=== PATIENT | male | born 1955 | race Two or more races ===

== ENCOUNTER 2018-06-17 15:03 | Inpatient (IN) | payer SELFPAY ==
[~2018-06-17] VITALS: Ht 160 cm; Wt 113.6 kg
[2018-06-17] MEDS ORDERED: SODIUM CHLORIDE FLUSH 10ML SYR IVF ONE (15:30)
[2018-06-17 15:34] LABS: BASOPHILS # (AUTO) 0.02 x10^3/uL (0-0.1); BASOPHILS % (AUTO) 0 % (0-1); EOSINOPHILS # (AUTO) 0.15 x10^3/uL (0-0.4); EOSINOPHILS % (AUTO) 2 % (1-7); LYMPHOCYTES # (AUTO) 1.85 x10^3/uL (1-3.4); LYMPHOCYTES % (AUTO) 19 % (22-44); MD NO; MEAN CORPUSCULAR HEMOGLOBIN 27.5 pg (27.5-34.5); MEAN CORPUSCULAR HGB CONC 33.4 g/dL (33.2-36.2); MEAN CORPUSCULAR VOLUME 82.2 fL (81-97); MEAN PLATELET VOLUME 9.4 fL (7.4-10.4); MONOCYTES # (AUTO) 0.79 x10^3/uL (0.2-0.8); MONOCYTES % (AUTO) 8 % (2-9); NEUTROPHILS # (AUTO) 7.16 x10^3/uL (1.8-6.8); NEUTROPHILS % (AUTO) 72 % (42-75); PLATELET COUNT 260 x10^3/uL (130-400); RED BLOOD COUNT 4.71 x10^6/uL (4.38-5.82); RED CELL DISTRIBUTION WIDTH 16.4 % (9.4-14.8)
[2018-06-17 15:46] LABS: ALANINE AMINOTRANSFERASE 17 U/L (12-78); ALBUMIN 3.2 g/dL (3.4-5.0); ANION GAP 11 mmol/L (5-15); CALCIUM 8.1 mg/dL (8.5-10.1); CHLORIDE 104 mmol/L (98-107); CREATININE 0.62 mg/dL (0.7-1.3)
[2018-06-17 15:48] LABS: ALKALINE PHOSPHATASE 186 U/L (45-117); BILIRUBIN,TOTAL 1.1 mg/dL (0.2-1.0); TOTAL PROTEIN 7.6 g/dL (6.4-8.2)
[2018-06-17] MEDS ORDERED: VANCOMYCIN PER PHARMACY MC PRN ×2 (18:00→19:30)
[2018-06-17] MEDS ORDERED: VANCOMYCIN 1,600 MG in SODIUM CHLORIDE 0.9% 250 ML IV ONE (18:30)
[2018-06-17] MEDS ORDERED: DIPHENHYDRAMINE 25 MG CAPSULE PO PRN (19:30)
[2018-06-17] MEDS ORDERED: ONDANSETRON ODT 4 MG PO PRN (19:30)
[2018-06-17] MEDS ORDERED: hydrALAzine 20 MG/ML, 1ML IVPush PRN (19:30)
[2018-06-17] MEDS ORDERED: KETOROLAC 30 MG/1 ML IV PRN (19:30)
[2018-06-17] MEDS ORDERED: ACETAMINOPHEN 325 MG TABLET PO PRN (19:30)
[2018-06-17 19:53] LABS: HEMOGLOBIN A1C 9.4 % (4.2-6.3)
[2018-06-17] MEDS ORDERED: PHARMACOKINETIC CONSULTATION MC ONE (21:00)
[2018-06-17] MEDS ORDERED: PHARMACOKINETIC MONITORING MC PRN (21:00)
[2018-06-17] MEDS: INSULIN LISPRO 100 UNITS/ML, PEN SQ-INSULIN SCH (21:48)
[2018-06-17] MEDS: POLYETHYLENE GLYCOL 17 GM PACKET PO SCH (22:04)
[2018-06-17] MEDS: ENOXAPARIN 40 MG/0.4 ML SQ SCH (22:04)
[2018-06-17 22:08] VITALS: BP 131/69
[2018-06-18 01:02] VITALS: BP 119/62
[2018-06-18] MEDS: INSULIN LISPRO 100 UNITS/ML, PEN SQ-INSULIN SCH ×4 (07:00→22:19)
[2018-06-18 07:55] VITALS: BP 107/51
[2018-06-18] MEDS: POLYETHYLENE GLYCOL 17 GM PACKET PO SCH (09:17)
[2018-06-18 12:25] VITALS: BP 110/55
[2018-06-18] MEDS: CEFTAROLINE 600 MG in SODIUM CHLORIDE 0.9% 100 ML IV SCH (12:55)
[2018-06-18] MEDS ORDERED: VANCOMYCIN 2,000 MG in SODIUM CHLORIDE 0.9% 500 ML IV SCH (14:00)
[2018-06-18] MEDS ORDERED: VANCOMYCIN 1,700 MG in SODIUM CHLORIDE 0.9% 250 ML IV SCH (18:30)
[2018-06-18 19:10] VITALS: BP 132/62
[2018-06-18] MEDS: ENOXAPARIN 40 MG/0.4 ML SQ SCH (22:19)
[2018-06-19] MEDS: CEFTAROLINE 600 MG in SODIUM CHLORIDE 0.9% 100 ML IV SCH ×2 (01:16→13:25)
[2018-06-19 01:38] VITALS: BP 114/65
[2018-06-19 05:46] LABS: CREATININE 0.63 mg/dL (0.7-1.3)
[2018-06-19] MEDS: INSULIN LISPRO 100 UNITS/ML, PEN SQ-INSULIN SCH ×5 (07:00→21:20)
[2018-06-19 07:30] VITALS: BP 123/73
[2018-06-19] MEDS: POLYETHYLENE GLYCOL 17 GM PACKET PO SCH (08:44)
[2018-06-19 15:04] VITALS: BP 111/66
[2018-06-19] MEDS: metFORMIN 500 MG TABLET PO SCH (17:17)
[2018-06-19 19:54] VITALS: BP 126/74
[2018-06-19 20:15] LABS: CLOSTRIDIUM DIFFICILE ANTIGEN NEGATIVE; CLOSTRIDIUM DIFFICILE TOXIN NEGATIVE (Negative)
[2018-06-19] MEDS: ENOXAPARIN 40 MG/0.4 ML SQ SCH (21:21)
[2018-06-20] MEDS: CEFTAROLINE 600 MG in SODIUM CHLORIDE 0.9% 100 ML IV SCH (01:24)
[2018-06-20 01:50] VITALS: BP 114/69
[2018-06-20] MEDS: INSULIN LISPRO 100 UNITS/ML, PEN SQ-INSULIN SCH ×2 (07:00→11:35)
[2018-06-20 08:00] VITALS: BP 122/72
[2018-06-20] MEDS: POLYETHYLENE GLYCOL 17 GM PACKET PO SCH (08:04)
[2018-06-20] MEDS: metFORMIN 500 MG TABLET PO SCH (08:54)
[2018-06-20] MEDS ORDERED: AMOX1TAB12 PO (12:05)
[2018-06-20] MEDS ORDERED: METF500T PO (12:05)
[2018-06-20] MEDS ORDERED: GLIP5TAB10 PO (12:05)
[2018-06-20] MEDS ORDERED: ACID1TAB7 PO (12:05)
[2018-06-20 14:31] VITALS: BP 127/74
[2018-06-20] MEDS ORDERED: LACTOBACILLUS CHEW TABLET PO SCH (16:00)
[2018-06-20] MEDS ORDERED: AMOXICILLIN/CLAV 875-125MG TABLET PO SCH (21:00)
== END 2018-06-20 16:16 | disposition home or self-care (01) | DRG 638 ==
LOC: ED 17:09 → EDIP 18:10 → 3NE 20:19
PROVIDERS: ADMIT Internal Medicine; ATTEND Internal Medicine
DX: E11.620 Type 2 diabetes mellitus with diabetic dermatitis (principal); L03.115 Cellulitis of right lower limb; E44.1 Mild protein-calorie malnutrition; Z68.41 Body mass index [BMI] 40.0-44.9, adult; L03.116 Cellulitis of left lower limb; D63.8 Anemia in other chronic diseases classified elsewhere; E11.65 Type 2 diabetes mellitus with hyperglycemia; E66.01 Morbid (severe) obesity due to excess calories; Z59.0 Homelessness; Z91.14 Patient's other noncompliance with medication regimen
CPT/HCPCS: 36415; 80053; 82565; 82962; 83036; 85025; 85651; 86140; 87324; 93970; 96365; G0378; J0712; J1650; J3370; J1815; J7050

== ENCOUNTER 2018-07-31 17:03 | Inpatient (IN) | payer SELFPAY ==
[~2018-07-31] VITALS: Ht 157.5 cm; Wt 109.1 kg
[~2018-07-31 17:03] MED LIST: ACID1TAB7 PO; AMOX1TAB12 PO; GLIP5TAB10 PO; METF500T PO
--- NOTE | 2018-07-31 17:27 | NUR ---
Pt to room with can vacuum tester.
--- NOTE | 2018-07-31 17:50 | NUR ---
lab at bedside.
--- NOTE | 2018-07-31 18:10 | NUR ---
Dr. Leon at bedside to evaluate pt.
--- NOTE | 2018-07-31 18:18 | NUR ---
PIV started, pt aware of plan to be admitted to the hospital.
[2018-07-31 18:20] LABS: BASOPHILS # (AUTO) 0.02 x10^3/uL (0-0.1); BASOPHILS % (AUTO) 0 % (0-1); EOSINOPHILS # (AUTO) 0.29 x10^3/uL (0-0.4); EOSINOPHILS % (AUTO) 4 % (1-7); LYMPHOCYTES # (AUTO) 1.59 x10^3/uL (1-3.4); LYMPHOCYTES % (AUTO) 22 % (22-44); MD NO; MEAN CORPUSCULAR HEMOGLOBIN 26.5 pg (27.5-34.5); MEAN CORPUSCULAR HGB CONC 33.3 g/dL (33.2-36.2); MEAN CORPUSCULAR VOLUME 79.7 fL (81-97); MEAN PLATELET VOLUME 9.2 fL (7.4-10.4); MONOCYTES # (AUTO) 0.76 x10^3/uL (0.2-0.8); MONOCYTES % (AUTO) 11 % (2-9); NEUTROPHILS # (AUTO) 4.45 x10^3/uL (1.8-6.8); NEUTROPHILS % (AUTO) 63 % (42-75); PLATELET COUNT 240 x10^3/uL (130-400); RED BLOOD COUNT 4.84 x10^6/uL (4.38-5.82); RED CELL DISTRIBUTION WIDTH 15.1 % (9.4-14.8)
[2018-07-31 18:25] LABS: ALANINE AMINOTRANSFERASE 25 U/L (12-78); ALBUMIN 2.9 g/dL (3.4-5.0); ANION GAP 7 mmol/L (5-15); CALCIUM 7.9 mg/dL (8.5-10.1); CHLORIDE 106 mmol/L (98-107); CREATININE 0.58 mg/dL (0.7-1.3)
[2018-07-31 18:27] LABS: ALKALINE PHOSPHATASE 174 U/L (45-117); BILIRUBIN,TOTAL 0.6 mg/dL (0.2-1.0); TOTAL PROTEIN 6.7 g/dL (6.4-8.2)
[2018-07-31] MEDS ORDERED: CEFAZOLIN PMX 1GM/50ML 50 ML IVPB ONE (18:30)
[2018-07-31] MEDS ORDERED: VANCOMYCIN PER PHARMACY IV ONE (18:30)
[2018-07-31] MEDS ORDERED: MORPHINE SULFATE 4 MG/ML, 1ML IV PRN (18:30)
[2018-07-31 18:58] LABS: TROPONIN I < 0.015 ng/mL (0.000-0.045)
[2018-07-31] MEDS ORDERED: SODIUM CHLORIDE FLUSH 10ML SYR IVF ONE (19:00)
[2018-07-31] MEDS ORDERED: PHARMACOKINETIC CONSULTATION MC ONE ×2 (19:00→23:00)
[2018-07-31] MEDS ORDERED: VANCOMYCIN 2,000 MG in SODIUM CHLORIDE 0.9% 500 ML IV ONE (19:00)
--- NOTE | 2018-07-31 19:06 | NUR ---
Report from Khloe SANCHEZ. microcomputer technician to bedside for EKG.
--- NOTE | 2018-07-31 19:25 | NUR ---
Requested ancef from pharmacy, not available in ED.
--- NOTE | 2018-07-31 19:46 | NUR ---
ABX infusing per orders, see emar. Pt resting comfortably in bed, states he does not need pain meds at this time but states he will notify this RN if pain worsens and he needs some. VSS. Pt awaiting room assignment. no distress noted, breathing E/U call light in reach.
--- NOTE | 2018-07-31 20:24 | NUR ---
Ancef complete. Vanco infusing per orders via pump, see emar. Pt resting, denies needs. no changes to pt or distress noted. VSS. will continue to monitor.
--- NOTE | 2018-07-31 21:11 | NUR ---
Pt continues to rest, abx infusing without difficulty. no acute distress noted. VSS. call light in reach.
--- NOTE | 2018-07-31 21:45 | NUR ---
Report to Geri SANCHEZ. Pt to shower via w/c and belongings to be double bagged.
--- NOTE | 2018-07-31 22:15 | NUR ---
Pt continues in shower with Tech assist.
--- NOTE | 2018-07-31 22:28 | NUR ---
PT IS BACK FROM SHOWER. HOSPITALIST AT BEDSIDE.
[2018-07-31] MEDS ORDERED: TEMAZEPAM 15 MG CAPSULE PO PRN (23:00)
[2018-07-31] MEDS ORDERED: DOCUSATE 100 MG CAPSULE PO PRN (23:00)
[2018-07-31] MEDS ORDERED: VANCOMYCIN PER PHARMACY MC PRN (23:00)
[2018-07-31] MEDS ORDERED: GLUCAGON 1 MG IM PRN (23:00)
[2018-07-31] MEDS ORDERED: morphine SULFATE 10 MG/ML, 1ML IVPush PRN (23:00)
[2018-07-31] MEDS ORDERED: PHARMACOKINETIC MONITORING MC PRN (23:00)
[2018-07-31] MEDS ORDERED: LABETALOL 5MG/ML, 20ML IVPush PRN (23:00)
[2018-07-31] MEDS ORDERED: DEXTROSE 4 GM TAB.CHEW PO PRN (23:00)
[2018-07-31] MEDS ORDERED: HYDROcodone/APAP 5/325 TABLET PO PRN (23:00)
[2018-07-31] MEDS ORDERED: DEXTROSE 50%, 50ML SYRINGE IVPush PRN (23:00)
[2018-07-31] MEDS ORDERED: PERMETHRIN CRM 5%, 60GM TP SCH (23:00)
[2018-07-31] MEDS ORDERED: ONDANSETRON 2MG/ML, 2ML IVPush PRN (23:00)
[2018-07-31] MEDS ORDERED: ONDANSETRON ODT 4 MG PO PRN (23:00)
[2018-07-31 23:16] LABS: HEMOGLOBIN A1C 9.9 % (4.2-6.3)
[2018-07-31] MEDS: ENOXAPARIN 40 MG/0.4 ML SQ SCH (23:45)
[2018-07-31] MEDS: VANCOMYCIN 2,100 MG in SODIUM CHLORIDE 0.9% 500 ML IV SCH (23:45)
[2018-08-01] MEDS: INSULIN LISPRO 100 UNITS/ML, PEN SQ-INSULIN SCH ×5 (00:28→21:21)
[2018-08-01 02:03] VITALS: BP 135/55
[2018-08-01 03:34] VITALS: BP 120/64
[2018-08-01] MEDS ORDERED: ACETAMINOPHEN 500 MG TABLET PO PRN (05:00)
[2018-08-01] MEDS: ASPIRIN 325 MG TABLET EC PO SCH (05:50)
[2018-08-01] MEDS ORDERED: CEFAZOLIN PMX 1GM/50ML 50 ML IV SCH (06:00)
[2018-08-01 07:57] VITALS: BP 137/73
[2018-08-01] MEDS: AMPICILLIN/SULBACTAM 3 GM in SODIUM CHLORIDE 0.9% 100 ML IV SCH ×3 (08:10→21:20)
[2018-08-01] MEDS: SODIUM CHLORIDE FLUSH 10ML SYR IVF SCH ×2 (08:10→21:22)
[2018-08-01] MEDS: NYSTATIN TOPICAL POWDER 15GM TP SCH ×2 (11:44→21:22)
[2018-08-01 13:44] VITALS: BP 104/62
[2018-08-01 19:45] VITALS: BP 116/61
[2018-08-01] MEDS: ENOXAPARIN 40 MG/0.4 ML SQ SCH (23:53)
[2018-08-01] MEDS: VANCOMYCIN 2,100 MG in SODIUM CHLORIDE 0.9% 500 ML IV SCH (23:53)
[2018-08-02 01:07] VITALS: BP 121/63
[2018-08-02] MEDS: AMPICILLIN/SULBACTAM 3 GM in SODIUM CHLORIDE 0.9% 100 ML IV SCH ×4 (03:02→20:59)
[2018-08-02] MEDS: ASPIRIN 325 MG TABLET EC PO SCH (05:24)
[2018-08-02] MEDS: INSULIN LISPRO 100 UNITS/ML, PEN SQ-INSULIN SCH ×4 (07:00→21:00)
[2018-08-02 07:40] VITALS: BP 133/71
[2018-08-02] MEDS: SODIUM CHLORIDE FLUSH 10ML SYR IVF SCH ×2 (09:00→21:00)
[2018-08-02] MEDS: NYSTATIN TOPICAL POWDER 15GM TP SCH ×2 (09:39→21:00)
[2018-08-02 14:40] VITALS: BP 126/70
[2018-08-02 18:47] VITALS: BP 125/69
[2018-08-02] MEDS: VANCOMYCIN 2,100 MG in SODIUM CHLORIDE 0.9% 500 ML IV SCH (23:58)
[2018-08-02] MEDS: ENOXAPARIN 40 MG/0.4 ML SQ SCH (23:58)
[2018-08-03 01:17] VITALS: BP 142/70
[2018-08-03] MEDS: AMPICILLIN/SULBACTAM 3 GM in SODIUM CHLORIDE 0.9% 100 ML IV SCH ×2 (03:00→09:43)
[2018-08-03] MEDS: ASPIRIN 325 MG TABLET EC PO SCH (05:46)
[2018-08-03 07:43] VITALS: BP 130/69
[2018-08-03] MEDS: INSULIN LISPRO 100 UNITS/ML, PEN SQ-INSULIN SCH ×4 (07:59→21:00)
[2018-08-03] MEDS: SODIUM CHLORIDE FLUSH 10ML SYR IVF SCH ×2 (09:43→21:00)
[2018-08-03] MEDS: NYSTATIN TOPICAL POWDER 15GM TP SCH ×2 (09:43→21:00)
[2018-08-03 15:19] VITALS: BP 129/70
[2018-08-03] MEDS ORDERED: INSULIN GLARGINE 100 UNITS/ML, PEN SQ-INSULIN SCH (21:00)
[2018-08-03] MEDS: AMOXICILLIN/CLAV 875-125MG TABLET PO SCH (21:00)
[2018-08-03] MEDS: ENOXAPARIN 30 MG/0.3 ML SQ SCH (21:30)
[2018-08-04] MEDS: ASPIRIN 325 MG TABLET EC PO SCH (05:25)
[2018-08-04] MEDS: INSULIN LISPRO 100 UNITS/ML, PEN SQ-INSULIN SCH (07:00)
[2018-08-04] MEDS ORDERED: METF500T PO (08:14)
[2018-08-04] MEDS ORDERED: AMOX1TAB12 PO (08:14)
[2018-08-04] MEDS: AMOXICILLIN/CLAV 875-125MG TABLET PO SCH (09:00)
[2018-08-04] MEDS: SODIUM CHLORIDE FLUSH 10ML SYR IVF SCH (09:00)
[2018-08-04] MEDS: NYSTATIN TOPICAL POWDER 15GM TP SCH (09:00)
[2018-08-04] MEDS: ENOXAPARIN 30 MG/0.3 ML SQ SCH (09:30)
== END 2018-08-04 13:20 | disposition home or self-care (01) | DRG 603 ==
LOC: ED 18:00 → EDIP 19:55 → 3NE 22:45
PROVIDERS: ADMIT Internal Medicine; ATTEND Internal Medicine
DX: L03.115 Cellulitis of right lower limb (principal); Z68.41 Body mass index [BMI] 40.0-44.9, adult; L03.116 Cellulitis of left lower limb; I87.2 Venous insufficiency (chronic) (peripheral); E66.01 Morbid (severe) obesity due to excess calories; L29.9 Pruritus, unspecified; B86 Scabies; E11.65 Type 2 diabetes mellitus with hyperglycemia; I50.810 Right heart failure, unspecified; Z91.14 Patient's other noncompliance with medication regimen; Z79.4 Long term (current) use of insulin; Z59.0 Homelessness; Z91.19 Patient's noncompliance with other medical treatment and regimen
CPT/HCPCS: 36415; 80053; 82962; 83036; 83605; 83880; 84484; 85025; 87040; 93005; 93922; 93970; 96365; 96375; G0378; J0295; J0690; J1650; J3370; J1815; J7040

== ENCOUNTER 2018-08-05 17:55 | Emergency (ER) | payer OTHER ==
[~2018-08-05] VITALS: Ht 157.5 cm; Wt 109.3 kg
[2018-08-05 18:00] VITALS: BP 139/58
[2018-08-05] MEDS ORDERED: IBUPROFEN 200 MG TABLET ONE (18:56)
[2018-08-05] MEDS ORDERED: IBUPROFEN 200 MG TABLET PO ONE (19:00)
== END 2018-08-05 19:53 | disposition home or self-care (01) ==
LOC: ED 19:40
DX: M25.551 Pain in right hip (principal)
CPT/HCPCS: 99283

== ENCOUNTER 2018-09-22 12:38 | Emergency (ER) | payer MEDICARE ==
[~2018-09-22] VITALS: Ht 157.5 cm; Wt 106.4 kg
--- NOTE | 2018-09-22 13:40 | NUR ---
PT AMBULATORY TO [facility] FROM [facility] WITH STEADY GAIT WITH OWN WALKER AT THIS TIME. APRYL HERRING AT BEDSIDE FOR EVALUATION. CALL LIGHT IN REACH. FALL PRECAUTIONS IN PLACE. NAD NOTED. RESP REGULAR AND UNLABORED. A&OX4.
--- NOTE | 2018-09-22 14:15 | NUR ---
EMT AT BEDSIDE TO SET UP BETADINE FOOT SOAK PER APRYL HERRING FOR PT ODOROUS FEET.
[2018-09-22 14:20] LABS: BASOPHILS # (AUTO) 0.03 x10^3/uL (0-0.1); BASOPHILS % (AUTO) 0 % (0-1); EOSINOPHILS # (AUTO) 0.14 x10^3/uL (0-0.4); EOSINOPHILS % (AUTO) 1 % (1-7); LYMPHOCYTES % (AUTO) 21 % (22-44); MD NO; MEAN CORPUSCULAR HEMOGLOBIN 26.6 pg (27.5-34.5); MEAN CORPUSCULAR HGB CONC 32.8 g/dL (33.2-36.2); MEAN PLATELET VOLUME 9.5 fL (7.4-10.4); MONOCYTES # (AUTO) 0.72 x10^3/uL (0.2-0.8); MONOCYTES % (AUTO) 7 % (2-9); NEUTROPHILS # (AUTO) 7.66 x10^3/uL (1.8-6.8); NEUTROPHILS % (AUTO) 71 % (42-75); PLATELET COUNT 211 x10^3/uL (130-400); RED BLOOD COUNT 5.14 x10^6/uL (4.38-5.82); RED CELL DISTRIBUTION WIDTH 16.7 % (9.4-14.8)
[2018-09-22 14:31] LABS: ALBUMIN 3.3 g/dL (3.4-5.0); ANION GAP 5 mmol/L (5-15); CALCIUM 8.4 mg/dL (8.5-10.1); CHLORIDE 107 mmol/L (98-107); CREATININE 0.66 mg/dL (0.7-1.3)
--- NOTE | 2018-09-22 14:55 | NUR ---
APRYL HERRING AT BEDSIDE FOR EVALUATION. FEET REMOVED FROM BETADINE SOAKS. NO ORDERS RECEIVED FOR PAIN. PT REPOSITIONED FOR COMFORT. PROVIDED BLANKET. DENIES NEED TO USE RESTROOM. CALL LIGHT IN REACH. VSS
--- NOTE | 2018-09-22 15:25 | NUR ---
PT FEET REPLACED INTO BETADINE SOAKS FOR COMFORT/PT REQUEST PER APRYL HERRING. VSS.CALL LIGHT IN REACH. DENIES NEED TO USE RESTROOM. AWAITING RAD.
--- NOTE | 2018-09-22 15:36 | NUR ---
pt not ready. legs still soaking. check back at [address] Nascimento
--- NOTE | 2018-09-22 16:00 | NUR ---
PT IN RAD
[2018-09-22 16:06] LABS: HCT (SEDRATE) 41.7 % (39.2-51.8)
--- NOTE | 2018-09-22 16:35 | NUR ---
PT BACK FROM RAD, NAD NOTED. DENIES NEED TO USE RESTROOM. VSS. CALL LIGHT IN REACH. FALL PRECAUTIONS IN PLACE. AWAITING RECHECK AND RAD RESULTS.
--- NOTE | 2018-09-22 16:57 | NUR ---
DR. QUICK AT BEDSIDE FOR RECHECK.
--- NOTE | 2018-09-22 17:17 | NUR ---
PT AWAITING SW CONSULT PER DR. QUICK
--- NOTE | 2018-09-22 17:35 | NUR ---
SW PETER AT BEDSIDE
[2018-09-22 17:47] VITALS: BP 134/65
--- NOTE | 2018-09-22 17:55 | NUR ---
PT CLEARED FOR DISCHARGE BY DR. QUICK. AWAITING CHART AND DISCHARGE PAPERS FROM ERP.
== END 2018-09-22 18:05 | disposition home or self-care (01) ==
LOC: ED 17:06
DX: L03.116 Cellulitis of left lower limb (principal); L03.115 Cellulitis of right lower limb; M54.9 Dorsalgia, unspecified; Z59.0 Homelessness
CPT/HCPCS: 36415; 72110; 80048; 82040; 85025; 85651; 86141; 99284

== ENCOUNTER 2020-10-20 16:39 | Emergency (ER) | payer MEDICARE ==
[~2020-10-20] VITALS: Ht 157.5 cm; Wt 103.0 kg
--- NOTE | 2020-10-20 16:51 | NUR ---
PATIENT BIB EMS WITH CHIEF C/O GLF AT 0700 THIS MORNING. PER EMS PATIENT WAS WALKING AROUND ALL DAY, AND STARTED EXPERIENCING LEFT KNEE AND LEFT ANKLE PAIN. NO OBVIOUS TRAUMA OR DEFORMITY NOTED. VSS, NO INTERVENTIONS. PATIENT DENIES LOC, DENIES HITTING HEAD, VSS, SIDE RAILS UP X2, CALL LIGHT WITHIN REACH.
[2020-10-20] MEDS ORDERED: NAPROXEN 500 MG TABLET PO ONE (17:30)
[2020-10-20] MEDS ORDERED: NAPROXEN 500 MG TABLET ONE (17:38)
--- NOTE | 2020-10-20 17:40 | NUR ---
PATIENT MEDICATED PER eMAR, NADN, VSS, SIDE RAILS UP X2, CALL LIGHT WITHIN REACH. WAITING FOR IMAGING RESULTS.
--- NOTE | 2020-10-20 17:43 | NUR ---
PATIENT TO X-RAY.
[2020-10-20 18:12] VITALS: BP 147/68
--- NOTE | 2020-10-20 18:47 | NUR ---
Patient given discharge instructions and prescription and they have confirmed that they understand the instructions. Patient stable and ambulatory with steady gait and use of walker from ED.
== END 2020-10-20 18:48 | disposition home or self-care (01) ==
LOC: ED 17:33
DX: G89.11 Acute pain due to trauma (principal); M25.572 Pain in left ankle and joints of left foot; M25.562 Pain in left knee; E11.9 Type 2 diabetes mellitus without complications
CPT/HCPCS: 99284

== ENCOUNTER 2020-11-22 18:57 | Emergency (ER) | payer MEDICARE ==
[~2020-11-22] VITALS: Ht 160 cm; Wt 111.0 kg
--- NOTE | 2020-11-22 19:37 | NUR ---
PT C/O PAIN IN RIGHT FOOT 1 MONTH. HAS A DANIELLE SIZED ULCER ON TOP OF RIGHT FOOT AND HAD A DANIELLE STUCK TO BOTTOM OF FOOT EMBEDDED, WAS REMOVED. PT HAS HX OF DIABETES BUT STATES "HASN'T TAKEN MEDICATION FOR DIABETES FOR A YEAR OR SO." BILATERAL CELLULITIS KNEESS DOWN. CALL REMOTE WITHIN REACH. AWAITING PROVIDER EVAL.
[2020-11-22 20:20] LABS: BASOPHILS % (AUTO) 1 % (0-1); EOSINOPHILS % (AUTO) 2 % (1-7); LYMPHOCYTES % (AUTO) 21 % (22-44); MEAN CORPUSCULAR HEMOGLOBIN 27.7 pg (27.5-34.5); MEAN CORPUSCULAR HGB CONC 33.4 g/dL (33.2-36.2); MEAN PLATELET VOLUME 8.7 fL (7.4-10.4); MONOCYTES % (AUTO) 8 % (2-9); NEUTROPHILS % (AUTO) 69 % (42-75); PLATELET COUNT 262 x10^3/uL (130-400); RED BLOOD COUNT 4.41 x10^6/uL (4.38-5.82)
[2020-11-22 20:22] LABS: MD NO
[2020-11-22 20:33] LABS: ANION GAP 5 mmol/L (5-15); CALCIUM 8.5 mg/dL (8.5-10.1); CHLORIDE 108 mmol/L (98-107); CREATININE 0.49 mg/dL (0.7-1.3)
--- NOTE | 2020-11-22 21:14 | NUR ---
UNABLE TO REACH US AFTER MULTIPLE ATTEMPTS TO CALL.
[2020-11-22] MEDS ORDERED: CEFAZOLIN PMX 1GM/50ML 50 ML IV ONE (21:30)
[2020-11-22] MEDS ORDERED: CEFAZOLIN PMX 1GM/50ML 0 ML ONE (21:33)
--- NOTE | 2020-11-22 21:51 | NUR ---
US AT BS AT THIS TIME. PER JUNO, COLLECTION SYSTEMS ADMINISTRATOR NO BLOOD CULTURES NEEDED PRIOR TO IV ABX; NO IV ABX NEEDED AND IM ABX ORDERED INSTEAD PER JUNO.
[2020-11-22] MEDS ORDERED: CEFAZOLIN 1,000 MG IM ONE (22:00)
[2020-11-22] MEDS ORDERED: CEFAZOLIN 1,000 MG ONE (22:15)
--- NOTE | 2020-11-22 22:22 | NUR ---
US COMPLETED. PT. MEDICATED PER OCT. VS UPDATED. PT. DENIES NEEEDS AT THIS TIME. WILL AWAIT US RESULTS.
[2020-11-22 23:08] VITALS: BP 150/68
--- NOTE | 2020-11-22 23:12 | NUR ---
DC INSTRUCTIONS PROVIDED TO PT. PT. CURRENTLY GETTING DRESSED FOR D/C.
--- NOTE | 2020-11-22 23:38 | NUR ---
Patient given discharge instructions and they have confirmed that they understand the instructions. Patient ambulatory with steady gait.
== END 2020-11-22 23:37 | disposition home or self-care (01) ==
LOC: ED 20:21
DX: L03.116 Cellulitis of left lower limb (principal); L03.115 Cellulitis of right lower limb; M79.89 Other specified soft tissue disorders; E11.9 Type 2 diabetes mellitus without complications; Z48.00 Encounter for change or removal of nonsurgical wound dressing
CPT/HCPCS: 36415; 73630; 80048; 85025; 93970; 96372; 99285; J0690

== ENCOUNTER 2020-11-29 10:56 | Emergency (ER) | payer MEDICARE ==
[~2020-11-29] VITALS: Ht 160 cm; Wt 102.9 kg
--- NOTE | 2020-11-29 11:16 | NUR ---
PT HAS CLOSED ULCER TO RIGHT TOP FOOT. PT STATES HE HAS BEEN DEALING WITH THE INFECTION FOR ABOUT 6 WEEKS. PT FINISHED HIS ANTIBIOTICS FROM THE LAST VISIT AND DOESN'T FEEL THAT ITS HEALING WELL. PAIN 03/21.
[2020-11-29 11:41] LABS: BASOPHILS % (AUTO) 1 % (0-1); EOSINOPHILS % (AUTO) 2 % (1-7); LYMPHOCYTES % (AUTO) 20 % (22-44); MEAN CORPUSCULAR HEMOGLOBIN 27.7 pg (27.5-34.5); MEAN CORPUSCULAR HGB CONC 33.4 g/dL (33.2-36.2); MEAN PLATELET VOLUME 8.8 fL (7.4-10.4); MONOCYTES % (AUTO) 9 % (2-9); NEUTROPHILS % (AUTO) 69 % (42-75); PLATELET COUNT 246 x10^3/uL (130-400); RED BLOOD COUNT 4.47 x10^6/uL (4.38-5.82); RED CELL DISTRIBUTION WIDTH 13.9 % (9.4-14.8)
[2020-11-29 11:42] LABS: MD NO
[2020-11-29 11:46] LABS: ALBUMIN 2.9 g/dL (3.4-5.0); ANION GAP 5 mmol/L (5-15); CALCIUM 8.4 mg/dL (8.5-10.1); CHLORIDE 108 mmol/L (98-107); CREATININE 0.65 mg/dL (0.7-1.3)
[2020-11-29 12:44] VITALS: BP 129/77
--- NOTE | 2020-11-29 12:50 | NUR ---
PT REC'VD DISCHARGE INSTRUCTIONS AND EDUCATION. PT HAD NO FURTHER QUESTIONS. PT AMBULATED TO DC AREA, STEADY GAIT.
== END 2020-11-29 13:20 | disposition home or self-care (01) ==
LOC: ED 13:00
DX: I83.12 Varicose veins of left lower extremity with inflammation (principal); I83.11 Varicose veins of right lower extremity with inflammation; L03.115 Cellulitis of right lower limb; E11.9 Type 2 diabetes mellitus without complications
CPT/HCPCS: 36415; 80048; 82040; 85025; 99284

== ENCOUNTER 2021-01-25 13:28 | Emergency (ER) | payer MEDICARE ==
[~2021-01-25] VITALS: Ht 160 cm; Wt 95.9 kg
[2021-01-25 14:15] LABS: BASOPHILS % (AUTO) 1 % (0-1); EOSINOPHILS % (AUTO) 2 % (1-7); LYMPHOCYTES % (AUTO) 25 % (22-44); MEAN CORPUSCULAR HEMOGLOBIN 27.5 pg (27.5-34.5); MEAN CORPUSCULAR HGB CONC 33.4 g/dL (33.2-36.2); MEAN PLATELET VOLUME 9.3 fL (7.4-10.4); MONOCYTES % (AUTO) 7 % (2-9); NEUTROPHILS % (AUTO) 66 % (42-75); PLATELET COUNT 212 x10^3/uL (130-400); RED BLOOD COUNT 5.07 x10^6/uL (4.38-5.82); RED CELL DISTRIBUTION WIDTH 14.2 % (9.4-14.8)
[2021-01-25 14:28] LABS: ALBUMIN 2.9 g/dL (3.4-5.0); ANION GAP 5 mmol/L (5-15); CALCIUM 8.3 mg/dL (8.5-10.1); CHLORIDE 108 mmol/L (98-107)
[2021-01-25 14:31] LABS: ALANINE AMINOTRANSFERASE 17 U/L (12-78); ALKALINE PHOSPHATASE 148 U/L (45-117); BILIRUBIN,TOTAL 0.9 mg/dL (0.2-1.0); CREATININE 0.69 mg/dL (0.7-1.3); TOTAL PROTEIN 6.8 g/dL (6.4-8.2)
[2021-01-25 14:53] VITALS: BP 117/58
--- NOTE | 2021-01-25 16:14 | NUR ---
[id number]
== END 2021-01-25 17:08 ==
LOC: ED 16:00
DX: M79.671 Pain in right foot (principal); M79.672 Pain in left foot; E11.9 Type 2 diabetes mellitus without complications
CPT/HCPCS: 36415; 80053; 85025; 99284

== ENCOUNTER 2021-04-18 19:42 | Emergency (ER) | payer MEDICARE ==
[~2021-04-18] VITALS: Ht 160 cm; Wt 107.0 kg
[2021-04-18 20:20] VITALS: BP 159/59
[2021-04-18 21:07] LABS: BASOPHILS % (AUTO) 1 % (0-1); EOSINOPHILS % (AUTO) 2 % (1-7); LYMPHOCYTES % (AUTO) 17 % (22-44); MEAN CORPUSCULAR HEMOGLOBIN 27.9 pg (27.5-34.5); MEAN CORPUSCULAR HGB CONC 33.7 g/dL (33.2-36.2); MEAN PLATELET VOLUME 9.4 fL (7.4-10.4); MONOCYTES % (AUTO) 6 % (2-9); NEUTROPHILS % (AUTO) 74 % (42-75); PLATELET COUNT 224 x10^3/uL (130-400); RED BLOOD COUNT 4.74 x10^6/uL (4.38-5.82)
[2021-04-18 21:13] LABS: ALBUMIN 2.9 g/dL (3.4-5.0); ANION GAP 3 mmol/L (5-15); CALCIUM 8.7 mg/dL (8.5-10.1); CHLORIDE 107 mmol/L (98-107)
[2021-04-18 21:20] LABS: CREATININE 0.77 mg/dL (0.7-1.3)
[2021-04-18 21:21] LABS: ALANINE AMINOTRANSFERASE 14 U/L (12-78); ALKALINE PHOSPHATASE 173 U/L (45-117); TOTAL PROTEIN 7.5 g/dL (6.4-8.2)
--- NOTE | 2021-04-18 22:39 | NUR ---
PT CAME IN CO REDNESS, SWELLING AND PAIN TO BOTH OF HIS LOWER LEGS X 1 MONTH. PT HAS DIABETES - NON COMPLIENT WITH MED. PT RESTING IN [facility]. US COMPLETE. LABS DRAWN. AWAITING FURTHER MD ORDERS AT THIS TIME
== END 2021-04-18 23:42 | disposition home or self-care (01) ==
LOC: ED 23:38
DX: L03.116 Cellulitis of left lower limb (principal); L03.115 Cellulitis of right lower limb; R60.0 Localized edema; E11.9 Type 2 diabetes mellitus without complications
CPT/HCPCS: 36415; 80053; 83880; 85025; 87040; 93970; 99284